=== PATIENT | female | born 1975 | race Caucasian/White ===

== ENCOUNTER 2017-08-27 17:27 | Emergency (ER) | payer OTHER ==
[~2017-08-27] VITALS: Ht 165.1 cm; Wt 72.6 kg
[~2017-08-27 17:27] MED LIST: ALLEGRA-D 24 H1 EACH PO; PRENATA CHEWAB1 EACH PO; ZOFRAN 4 MG ORAL4 MG PO
[2017-08-27] MEDS ORDERED: FLONASE 0.05%50 MCG NASAL (17:54)
[2017-08-27] MEDS ORDERED: TESSALON PERLE100 MG PO (17:54)
[2017-08-27 18:31] LABS: HEMATOCRIT 38.9 % (37.0-47.0); HEMOGLOBIN 13.3 gm/dL (12.0-15.0); MCH 30.6 pg (26.0-34.0); MCHC 34.3 g/dL (28.0-37.0); MCV 89.3 fL (80.0-100.0); MPV 8.4 fl. (7.2-11.1); NUCLEATED RBCS 0 /100WBC; PLATELET COUNT* 311 thou/uL (150-400); RBC 4.36 mil/uL (4.20-5.00); RDW-CV 13.4 % (10.5-14.5); WBC 10.1 thou/uL (4.0-11.0)
[2017-08-27 18:38] LABS: ANION GAP 9 mmol/L (7-16); BUN 10 mg/dL (7-18); CALCIUM 8.4 mg/dL (8.5-10.1); CHLORIDE 107 mmol/L (98-107); CO2 26 mmol/L (21-32); CREATININE 0.7 mg/dL (0.6-1.3); GLUCOSE 110 mg/dL (70-99); POTASSIUM 3.6 mmol/L (3.5-5.1); SODIUM 142 mmol/L (136-145)
[2017-08-27 18:48] LABS: ALBUMIN 3.8 g/dL (3.4-5.0); ALKALINE PHOSPHATASE 78 U/L (46-116); NT-PRO BRAIN NAT PEPTIDE 17 pg/mL (<300); SGOT 17 U/L (15-37); SGPT 26 U/L (30-65); TOTAL BILIRUBIN 0.3 mg/dL (<0.1-1.0); TOTAL PROTEIN 7.6 g/dL (6.4-8.2); TROPONIN-I LEVEL <0.06 ng/mL (<0.06)
[2017-08-27] MEDS ORDERED: ATIVAN1 MG PO (18:51)
[2017-08-27] MEDS ORDERED: AZITHROMYCIN 2250 MG PO (18:51)
[2017-08-27] MEDS ORDERED: VENTOLIN HFA 1818 GM INH (18:51)
[2017-08-27] MEDS ORDERED: MEDROLDOSEPACK PO (18:51)
[2017-08-27 18:57] LABS: ABSOLUTE EOSINOPHILS 1.3 thou/uL (0.0-0.7); ABSOLUTE LYMPHOCYTES 1.8 thou/uL (0.8-5.3); ABSOLUTE MONOCYTES 0.6 thou/uL (0.0-1.2); ABSOLUTE NEUTROPHILS 6.4 thou/uL (1.6-8.1); ATYPICAL LYMPHS 4 %; PLATELET ESTIMATE ADEQUATE
[2017-08-27 19:09] VITALS: BP 103/60
--- NOTE | 2017-08-28 12:48 | EKG ---
[place] [address] ELECTROCARDIOGRAM REPORT Name: MINKANCHAN Nataliia Room: [facility]#: [id number] Admission: 08/27/17 Attend Phys: Discharge: 08/27/17 Date of : 77 Report #: [id number] THIS REPORT FOR: //name// [facility] ED Test Date: 2017-08-27 Test Time: 18:39:27 Pat Name: KANCHAN COPELAND Department: Room: Gender: F Mobility Developer: Renate KING : 1975 Requested By: Van Santos Order Number: [id number] MD: Wilfredo Florez Measurements Intervals [place] Rate: 112 P: 57 OK: 125 QRS: 8 QRSD: 84 T: -10 QT: 308 QTc: 421 Interpretive Statements Sinus tachycardia with irregular rate Probable left atrial enlargement Borderline repolarization abnormality No previous ECG available for comparison Electronically Signed On 08-28-2017 12:47:48 NETWORK ASSOCIATE by Wilfredo Florez [email or web address] <ELECTRONICALLY SIGNED> By: Wilfredo Florez MD, [facility] 08/28/17 1247 D: [id number] Wilfredo Florez MD, FACC /EPI
== END 2017-08-27 19:10 | disposition home or self-care (01) ==
LOC: M.ERS 17:27
PROVIDERS: Emergency Medicine
DX: J45.909 Unspecified asthma, uncomplicated (principal)

== ENCOUNTER 2021-07-04 16:31 | Emergency (ER) | payer OTHER, MEDICAID ==
[~2021-07-04] VITALS: Ht 165.1 cm; Wt 72.6 kg
[~2021-07-04 16:31] MED LIST changes: +ATIVAN1 MG PO; +AZITHROMYCIN 2250 MG PO; +FLONASE 0.05%50 MCG NASAL; +MEDROLDOSEPACK PO; +TESSALON PERLE100 MG PO; +VENTOLIN HFA 1818 GM INH
[2021-07-04] MEDS ORDERED: MEDROLDOSEPACK PO (17:27)
[2021-07-04 17:32] VITALS: BP 122/75
[2021-07-04] MEDS ORDERED: SINGULAIR 10 MG10 M1 PO (17:32)
== END 2021-07-04 17:33 | disposition home or self-care (01) ==
LOC: M.ERS 16:31
DX: J02.9 Acute pharyngitis, unspecified (principal); H92.03 Otalgia, bilateral

== ENCOUNTER 2021-07-21 19:40 | Emergency (ER) | payer OTHER, MEDICAID ==
[~2021-07-21] VITALS: Ht 165.1 cm; Wt 75.3 kg
[~2021-07-21 19:40] MED LIST changes: +SINGULAIR 10 MG10 M1 PO
[2021-07-21 19:56] VITALS: BP 138/80
[2021-07-21 20:16] LABS: URINE BILIRUBIN NEGATIVE (Negative); URINE BLOOD 3+ (Negative); URINE CLARITY CLOUDY; URINE COLOR YELLOW; URINE GLUCOSE-RANDOM NEGATIVE (Negative); URINE KETONES NEGATIVE (Negative); URINE LEUKOCYTES-REFLEX 1+ (Negative); URINE NITRITE-REFLEX NEGATIVE (Negative); URINE PROTEIN NEGATIVE (Negative); URINE SPECIFIC GRAVITY 1.015 (1.005-1.030); URINE UROBILINOGEN 0.2 E.U./dl (0.2-1.0)
[2021-07-21 20:34] LABS: BACTERIA-REFLEX 1-9 Few /HPF (None Seen); SQUAMOUS >10 Many /LPF (0-3); URINE RBC 3-10 Few /HPF (0-2); URINE WBC-REFLEX 6-15 Few /HPF (0-5)
[2021-07-21 20:35] LABS: AMORPHOUS PHOSPHATES Few /LPF (None Seen); CASTS None Seen /LPF (None Seen)
[2021-07-21] MEDS ORDERED: ZOFRAN ODT4 MG PO (23:44)
== END 2021-07-22 00:08 | disposition home or self-care (01) ==
LOC: M.ERS 19:40
PROVIDERS: Emergency Medicine
DX: R11.2 Nausea with vomiting, unspecified (principal); Z20.822 Contact with and (suspected) exposure to COVID-19; R50.9 Fever, unspecified; Z79.899 Other long term (current) drug therapy